=== PATIENT | female | born 1980 | race Native Hawaiian/Other Pacific Islander ===

== ENCOUNTER 2017-11-22 19:18 | Emergency (ER) | payer BC ==
[2017-11-22 19:32] VITALS: BP 132/99
--- NOTE | 2017-11-22 22:03 | Cat Scan Report ---
FINAL REPORT PROCEDURE: CT HEAD/BRAIN WO CON TECHNIQUE: Computerized tomography of the head was performed without contrast material. HISTORY: s/P fall Hit head COMPARISON: No prior studies are available for comparison. FINDINGS: Skull and scalp: Normal. Paranasal sinuses: Normal. Ventricles and subarachnoid spaces: Normal. Cerebrum: No evidence of hemorrhage, acute infarction or mass . Cerebellum and brainstem: No evidence of hemorrhage, acute infarction or mass. Vasculature: Normal. Comments: None. IMPRESSION: Normal Examination
[2017-11-22] MEDS ORDERED: TYLENOL PO ONE (23:54)
--- NOTE | 2017-11-22 23:59 | Emergency Department Report ---
HPI - General Chief Complaint: Fall Time Seen by Provider: 11/22/17 23:17 - HPI HPI: The patient is a 37-year-old female presents for evaluation of headache. The patient states that she fell off of her size heart report earlier today at 8 PM , approximately 3-4 hours prior to my evaluation. She complains of a moderate in severity, aching in quality headache, frontal in located, constant since onset. She also has experienced some mild tightness in quality left neck pain. She denies syncope, chest pain, back pain, abdominal pain, pain to extremities , paresthesias, motor deficit, or other focal neurological deficit. ED Past Medical Hx - Past Medical History Previous Medical History?: Yes - Surgical History Past Surgical History?: Yes Hx Appendectomy: Yes Additional Surgical History: tonsilectomy - Social History Smoking Status: Never Smoker Substance Use Type: None - Medications Home Medications: Home Medications Medication Instructions Recorded Confirmed Last Taken Type Acetaminophen/Codeine [Tylenol #3] 1 tab PO Q6H PRN #12 tab 11/23/17 Unknown Rx Ibuprofen [Motrin] 800 mg PO Q8HR PRN #15 tablet 11/23/17 Unknown Rx ED Review of Systems ROS: Stated complaint: HEAD INJURY Other details as noted in HPI Constitutional: denies: fever ENT: denies: throat reports neck pain Respiratory: denies: cough, shortness of breath Cardiovascular: denies: chest pain Endocrine: denies unexplained weight loss or gain Gastrointestinal: denies: abdominal pain, nausea Genitourinary: denies: dysuria Musculoskeletal: denies: leg swelling Skin: denies: rash Neurological: reports: headache Hematological/Lymphatic: denies: easy bleeding or easy bruising Psych: denies sadness or hopelessness Physical Exam - Physical Exam Vital Signs: Vital Signs 11/22/17 19:23 Temperature 98.9 F Pulse Rate 73 Respiratory 18 Rate Blood Pressure 132/99 O2 Sat by Pulse 98 Oximetry Physical Exam: General: well-nourished, well-developed, no acute distress Head: Normocephalic, atraumatic Eyes: normal sclera ENT: Mucous membranes are pink and moist Neck: trachea midline, neck supple, No neck stiffness, no cervical adenopathy, left lower cervical paraspinal musculature and caudal medial trapezius TTP present, no midline bony tenderness overlying the spinous processes, no spinous step-off or obvious deformity Respiratory: Breath sounds equal bilaterally, no wheezing, rales, or rhonchi Cardio: S1 and S2 present, no murmurs, rubs, gallops, capillary refill is brisk Abdomen: Normoactive bowel sounds, soft abdomen, no rigidity, no guarding or rebound tenderness Musc: No pitting edema Skin: No rash Neuro: alert oriented x4, normal cognition, speech normal, PERRL, EOM intact, no facial drooping, no uvula or tongue deviation on protrusion, no deficit with rotation of neck or shoulder shrug, no obvious gross motor deficit in the upper or lower extremities with flexion or extension at the shoulder, elbow, wrist, hip, knee, or ankle bilaterally, no obvious gross sensation deficit to crude touch or 2 pt discrimination, 2+ symmetric reflexes on DTR testing, no coordination deficit with [id number] or [id number] testing, Babinski downgoing, romberg negative, patient able to to ambulate without abnormal gait Psych: Normal affect ED Course Vital Signs 11/22/17 19:23 Temperature 98.9 F Pulse Rate 73 Respiratory 18 Rate Blood Pressure 132/99 O2 Sat by Pulse 98 Oximetry ED Medical Decision Making - Medical Decision Making The patient was seen and examined by myself. The patient is placed on a cardiac catheterization technologist and continuous pulse ox. On initial evaluation, the patient was found to be in no distress. Evaluation orders were placed. The patient. She' ll return for her pain. CT scan the head is negative for acute intracranial disease process. The patient was reevaluated and reported that their symptoms were markedly improved. The patient is stable for discharge with outpatient follow-up. The patient is given follow-up and return instructions. The patient expressed understanding and agreed with the plan. The patient is discharged in stable condition. Critical care attestation.: If time is entered above; I have spent that time in minutes in the direct care of this critically ill patient, excluding procedure time. ED Disposition Clinical Impression: Acute post-traumatic headache, not intractable, Neck pain, acute Disposition: TO HOME OR SELFCARE Is pt being admited?: No Does the pt Need Aspirin: No Condition: Stable Instructions: Fall Prevention (ED), Acute Headache (ED), Muscle Strain (ED) Referrals: PRIMARY CARE, [Primary Care Provider] - 3-5 Days Time of Disposition: 00:01
== END 2017-11-23 00:26 | disposition home or self-care (01) ==
LOC: ED 19:18
DX: G44.319 Acute post-traumatic headache, not intractable (principal); M54.2 Cervicalgia; Z90.89 Acquired absence of other organs; Z90.49 Acquired absence of other specified parts of digestive tract
CPT/HCPCS: 70450